=== PATIENT | female | born 1945 | race Caucasian/White ===

== ENCOUNTER 2016-07-05 14:07 | Outpatient (CLI) | payer MEDICARE, OTHER ==
--- NOTE | 2016-07-05 20:00 | CT ---
CT ABDOMEN AND PELVIS WITH CONTRAST 07/05/[address] of the abdomen and pelvis was done for investigation of left lower quadrant pain. Compari son is made with a 12/02/15 CT exam. Axial slices were acquired after giving IV contrast as well as oral. Coronal reconstructions were th en done. The lung bases are clear. The liver, spleen, pancreas, adrenal glands, and kidneys showed n o acute findings. The aorta is normal in size. There has been a prior cholecystectomy. Previously, there was slight in trahepatic bile duct dilation and some moderate dilation of the common duct. This does not appear to be present today. Diverticulosis is present in the colon, particularly in the sigmoid. I do not see any convincing fin dings of diverticulitis. There is some mild thickening of a few loops of right colon and transverse colon and a few loops of small bowel. Nevertheless, the degree of thickening is far far less than it was on the 12/02/15 CT scan. Mild gastroenteritis might cause such an appearance. There are no inflam matory changes around bowel itself. No free air or free fluid was seen. CT of the pelvis shows no pelvic masses, free fluid or inflammatory change. Degenerative changes are prominent in the lumbar spine. IMPRESSION: Very mild thickening of portions of the colon and small bowel. Consider gastroenteritis. Diverticulo sis without signs of diverticulitis was seen as well. POS: HOME
== END 2016-07-05 14:08 | disposition home or self-care (01) ==
LOC: BURCT 14:07
PROVIDERS: ATTEND Family Medicine
DX: R10.32 Left lower quadrant pain (principal)
CPT/HCPCS: 36415; 74177; 82565

== ENCOUNTER 2016-10-09 09:35 | Outpatient (CLI) | payer MEDICARE, OTHER ==
[2016-10-09 11:13] LABS: ALT (SGPT) 27 U/L (0-55); AST (SGOT) 21 U/L (5-34); Albumin 3.9 g/dL (3.4-4.8); Alkaline Phosphatase 93 U/L (40-150); Anion Gap 12 mmol/L (10-20); BUN (Urea Nitrogen) 22 mg/dL (9.8-20.1); Bilirubin, Total 0.6 mg/dL (0.2-1.2); Calc. Creatinine Clearance 0 mL/min (70-130); Calcium 8.9 mg/dL (7.8-10.44); Carbon Dioxide 27 mmol/L (23-31); Cardiac Risk 3.1 (Less than 4.5); Chloride 110 mmol/L (98-107); Cholesterol 169 mg/dL (< 200 Desired); Estimated GFR-MDRD 81; Globulin 2.1 g/dL (2.4-3.5); Glucose 107 mg/dL (83-110); HDL Cholesterol 54 mg/dL (>60 Neg Risk); LDL Cholesterol, Calculated 87 mg/dL; Potassium 4.5 mmol/L (3.5-5.1); Sodium 144 mmol/L (136-145); Triglycerides 141 mg/dL (Less than 150)
== END 2016-10-09 09:36 | disposition home or self-care (01) ==
LOC: BURLAB 09:35
PROVIDERS: ATTEND Internal Medicine Cardiovascular Disease
DX: E78.00 Pure hypercholesterolemia, unspecified (principal); E03.9 Hypothyroidism, unspecified
CPT/HCPCS: 36415; 80053; 80061; 84443

== ENCOUNTER 2016-11-25 16:10 | Outpatient (CLI) | payer MEDICARE, OTHER ==
--- NOTE | 2016-11-25 18:10 | RAD ---
RADIOGRAPH RIGHT RIBS AND CHEST FIVE VIEWS: History: 71-year-old female status post right rib contusion, initial encounter. ICD-10: S20.211A. Trauma on 11-18-16. FINDINGS: No displaced rib fracture is identified. The visualized lung lima are clear on the frontal view. T he right lateral costophrenic angle is sharp. No cardiomegaly or pneumothorax. Diffuse osteopenia. IMPRESSION: 1. No right rib fracture identified. 2. Osteopenia. POS: [facility]
== END 2016-11-25 16:11 | disposition home or self-care (01) ==
LOC: BURRAD 16:10
PROVIDERS: ATTEND Family Medicine
DX: S20.211A Contusion of right front wall of thorax, initial encounter (principal); M85.88 Other specified disorders of bone density and structure, other site

== ENCOUNTER 2016-12-24 10:16 | Outpatient (CLI) | payer MEDICARE, OTHER ==
[2016-12-24 11:22] LABS: #Basophils 0.1 thou/uL (0.0-0.2); #Eosinphils 0.1 thou/uL (0.0-0.7); #Lymphocytes 2.3 thou/uL (1.20-3.40); #Monocytes 0.7 thou/uL (0.11-0.59); #Neutrophils 3.3 thou/uL (1.40-6.50); %Basophils 0.9 % (0.0-1.0); %Eosinophils 1.9 % (0.0-10.0); %Lymphocytes 35.5 % (21.0-51.0); %Monocytes 10.4 % (0.0-10.0); %Neutrophils 51.3 % (42.0-75.0); Hemoglobin 13.6 g/dL (12.0-16.0); Mean Corpuscular HGB CONC 32.8 g/dL (32.0-36.0); Mean Corpuscular Hemoglobin 33.5 pg (27.0-31.0); Mean Platelet Volume 7.5 fL (7.4-10.4); Platelet Count 184 thou/uL (130-400); RBC Distribution Width 13.5 % (11.5-14.5); Red Blood Cell (RBC) Count 4.06 mill/uL (4.20-5.40); White Blood Cell (WBC) Count 6.4 thou/uL (4.8-10.8)
== END 2016-12-24 10:17 | disposition home or self-care (01) ==
LOC: HPCALD 10:16
PROVIDERS: ATTEND Family Medicine
DX: D64.9 Anemia, unspecified (principal); E03.9 Hypothyroidism, unspecified
CPT/HCPCS: 36415; 84443; 85025

== ENCOUNTER 2017-01-02 11:54 | Outpatient (CLI) | payer MEDICARE, OTHER ==
[2017-01-02 12:23] LABS: ALT (SGPT) 31 U/L (8-55); AST (SGOT) 27 U/L (5-34); Alkaline Phosphatase 96 U/L (40-150); Anion Gap 13 mmol/L (10-20); BUN (Urea Nitrogen) 17 mg/dL (9.8-20.1); Bilirubin, Total 0.7 mg/dL (0.2-1.2); Calc. Creatinine Clearance 0 mL/min (70-130); Calcium 9.1 mg/dL (7.8-10.44); Carbon Dioxide 27 mmol/L (23-31); Chloride 106 mmol/L (98-107); Estimated GFR-MDRD 75; Globulin 2.2 g/dL (2.4-3.5); Glucose 88 mg/dL (83-110); Potassium 4.4 mmol/L (3.5-5.1); Protein, Total 6.2 g/dL (6.0-8.3); Sodium 142 mmol/L (136-145)
[2017-01-02 18:11] LABS: Folate (Folic Acid) 16.3 ng/mL (7.0-31.4)
== END 2017-01-02 11:55 | disposition home or self-care (01) ==
LOC: HPCALD 11:54
PROVIDERS: ATTEND Nurse Practitioner
DX: D53.9 Nutritional anemia, unspecified (principal)
CPT/HCPCS: 36415; 80053; 82607; 82746

== ENCOUNTER 2018-04-24 08:37 | Emergency (ER) | payer MEDICARE, BC ==
[2018-04-24] MEDS ORDERED: Dicyclomine 20 MG TAB ONE (09:09)
[2018-04-24 09:38] LABS: #Lymphocytes 0.9 thou/uL (1.20-3.40); #Monocytes 0.6 thou/uL (0.11-0.59); #Neutrophils 4.7 thou/uL (1.40-6.50); %Basophils 0.7 % (0.0-1.0); %Eosinophils 0.1 % (0.0-10.0); %Lymphocytes 14.7 % (21.0-51.0); %Monocytes 9.2 % (0.0-10.0); %Neutrophils 75.3 % (42.0-75.0); Hemoglobin 12.9 g/dL (12.0-16.0); Mean Corpuscular HGB CONC 33.9 g/dL (32.0-36.0); Mean Corpuscular Hemoglobin 32.6 pg (27.0-31.0); Mean Corpuscular Volume 96.3 fL (78.0-98.0); Mean Platelet Volume 8.2 fL (7.4-10.4); Platelet Count 164 thou/uL (130-400); RBC Distribution Width 12.9 % (11.5-14.5); Red Blood Cell (RBC) Count 3.95 mill/uL (4.20-5.40); White Blood Cell (WBC) Count 6.2 thou/uL (4.8-10.8)
[2018-04-24 09:45] LABS: Clarity Cloudy (Clear); Glucose, Urine (Dipstick) Negative (Negative); Leukocyte Moderate (Negative); Nitrite Negative (Negative); Protein, Urine (Dipstick) 30 mg/dL (Neg-Trace); Specific Gravity, Urine 1.025 (1.005-1.030)
[2018-04-24 09:46] LABS: Bilirubin Moderate (Negative); Blood, Urine Small (Negative)
[2018-04-24] MEDS ORDERED: Sulfameth/Trimethoprim DS 800-160mg TAB ONE (09:50)
[2018-04-24 09:58] LABS: ALT (SGPT) 150 U/L (8-55); AST (SGOT) 108 U/L (5-34); Albumin 3.6 g/dL (3.4-4.8); Alkaline Phosphatase 158 U/L (40-150); Anion Gap 14 mmol/L (10-20); BUN (Urea Nitrogen) 9 mg/dL (9.8-20.1); Bilirubin, Total 1.6 mg/dL (0.2-1.2); Calc. Creatinine Clearance 0 mL/min (70-130); Calcium 8.7 mg/dL (7.8-10.44); Carbon Dioxide 28 mmol/L (23-31); Chloride 103 mmol/L (98-107); Estimated GFR-MDRD 88; Globulin 2.1 g/dL (2.4-3.5); Glucose 117 mg/dL (83-110); Lipase 6 U/L (8-78); Potassium 3.1 mmol/L (3.5-5.1); Protein, Total 5.7 g/dL (6.0-8.3); Sodium 142 mmol/L (136-145)
[2018-04-24 10:06] LABS: RBC/HPF 0-3 HPF (0-3)
[2018-04-24 10:07] LABS: Bacteria/HPF 2+ HPF (None Seen); Renal Epithelial 0-3 HPF (0-3); Squamous Epithelial 0-3 HPF (0-3)
[2018-04-24 10:08] LABS: Oval Fat Bodies/HPF 1+ HPF (None Seen)
[2018-04-24 17:39] LABS: HBCM Index 0.09 S/CO (0-0.79); HBSAg Index 0.38 S/CO (0-0.99); Hep A IgM AB Non-Reactive (NonReactive); Hep B Surf Ag Non-Reactive S/CO (NonReactive); Hep C IgG Ab Non-Reactive (NonReactive); Hep C Index 0.05 S/CO (0-0.79); Hepatitis B Core IGM Abs Non-Reactive (NonReactive)
== END 2018-04-24 11:12 | disposition home or self-care (01) ==
LOC: BURERS 08:37
DX: R19.7 Diarrhea, unspecified (principal); N39.0 Urinary tract infection, site not specified; R79.89 Other specified abnormal findings of blood chemistry; E03.9 Hypothyroidism, unspecified; E78.5 Hyperlipidemia, unspecified; Z87.891 Personal history of nicotine dependence; Z79.899 Other long term (current) drug therapy; Z79.82 Long term (current) use of aspirin
CPT/HCPCS: 80053; 80074; 81003; 81015; 83690; 85025; 87077; 87086; 87186; 96360; 96361

== ENCOUNTER 2018-05-29 14:05 | Outpatient (CLI) | payer MEDICARE, BC ==
--- NOTE | 2018-05-29 20:15 | RAD ---
ACUTE ABDOMEN SERIES: Date: 05-29-18 FINDINGS: The gas pattern is nonspecific with gas in large and small bowel, but no loops seen greatly distended . Abundant fecal material is seen in the colon. Vascular calcifications are present. Mild degenerativ e changes are seen in the hips, particularly the left. The chest film in the series was compared with a 11-25-16 study. The heart size is stable and shows no dramatic enlargement. The lungs are clear. IMPRESSION: Nonspecific abdominal findings. POS: HOME
== END 2018-05-29 14:06 | disposition home or self-care (01) ==
LOC: BURRAD 14:05
PROVIDERS: ATTEND Family Medicine
DX: R10.32 Left lower quadrant pain (principal); K59.00 Constipation, unspecified
CPT/HCPCS: 74022

== ENCOUNTER 2019-05-04 11:03 | Outpatient (CLI) | payer MEDICARE, BC ==
--- NOTE | 2019-05-04 15:48 | RAD ---
LEFT WRIST THREE VIEWS: 05/04/2019 FINDINGS: No acute fracture is seen. There is no area of bony destruction. The carpal relationships seem normal . IMPRESSION: No acute finding. POS: HOME
== END 2019-05-04 11:04 | disposition home or self-care (01) ==
LOC: BURRAD 11:03
PROVIDERS: ATTEND Family Medicine
DX: M25.532 Pain in left wrist (principal)

== ENCOUNTER 2019-07-23 12:17 | Outpatient (CLI) | payer MEDICARE, BC ==
--- NOTE | 2019-07-23 15:18 | RAD ---
LEFT HAND 3 VIEWS: DATE: 07/23/2019. FINDINGS: Comparison is made with an 05/04/2019 study of the wrist. No fracture, recent or remote, was seen. The joints appear normal. The carpal bones show no fractur e or disorganization. The distal radius and ulna appear intact. No soft tissue abnormalities of con cern were appreciated. IMPRESSION: No significant findings. POS: HOME
== END 2019-07-23 12:18 | disposition home or self-care (01) ==
LOC: BURRAD 12:17
PROVIDERS: ATTEND Family Medicine
DX: M79.642 Pain in left hand (principal)

== ENCOUNTER 2019-11-04 10:04 | Outpatient (CLI) | payer MEDICARE, BC ==
--- NOTE | 2019-11-04 14:13 | RAD ---
LUMBAR SPINE 3 VIEWS: DATE: 11/04/2019. FINDINGS: A degenerated disk is present at L3-L4 and at L5-S1. Since a 2009 lumbar spine series, the L3-L4 fin ding has occurred. Disk degeneration was already present at L5-S1 previously, except the facet arthr itis at this level has worsened considerably. Anterior osteophytes are seen in the low thoracic and upper lumbar region as previously. The SI joints appear normal. A minimal sclerotic density over th e left sacral ala could even be due to overlapping structures. Its current significance is felt to b e low. 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 Facet arthritis at the lumbosacral level has definitel y increased. POS: HOME
== END 2019-11-04 10:05 | disposition home or self-care (01) ==
LOC: BURRAD 10:04
PROVIDERS: ATTEND Family Medicine
DX: M51.16 Intervertebral disc disorders with radiculopathy, lumbar region (principal); M47.817 Spondylosis without myelopathy or radiculopathy, lumbosacral region
CPT/HCPCS: 72100